=== PATIENT | male | born 1995 | race African-American/Black ===

== ENCOUNTER → 2019-04-13 | Outpatient (CLI) | payer OTHER | LOC: MHCPAIN 14:24 | DX: G89.29 Other chronic pain (principal); M47.817 Spondylosis without myelopathy or radiculopathy, lumbosacral region; M53.3 Sacrococcygeal disorders, not elsewhere classified | CPT/HCPCS: G0463 ==

== ENCOUNTER → 2019-05-05 | Outpatient (CLI) | payer OTHER | LOC: MHCPAIN 12:52 | DX: M47.817 Spondylosis without myelopathy or radiculopathy, lumbosacral region (principal); M54.16 Radiculopathy, lumbar region ==